=== PATIENT | female | born 1995 | race American Indian/Alaskan Native ===

== ENCOUNTER 2016-06-29 22:37 | Emergency (ER) | payer OTHER ==
[2016-06-30] MEDS ORDERED: BENADRYL ONE (01:20)
[2016-06-30 01:28] VITALS: BP 126/73
[2016-06-30] MEDS ORDERED: BENADRYL IM ONE (01:29)
--- NOTE | 2016-06-30 01:55 | Emergency Department Report ---
ED Rash HPI - HPI Chief Complaint: Skin Rash Stated Complaint: HIVES, RASH Time Seen by Provider: 06/30/16 01:21 Duration: 2 Days Location: Chest, Back, Abdomen, Upper Extremities, Lower Extremities Suspected Cause: Unknown Rash Symptoms: Yes Itching (rash), No Facial Swelling, No Tongue/Oral Swelling, No Breathing Difficulties, No Choking Sensation, No Wheezing/Dyspnea, No Peeling , No Blistering, No Fever, No Lightheaded, No Malaise, No Myalgias Severity: moderate Other History: Patient report rash and redness for 2 days. She says she has been itching and she took Benadryl yesterday but did not help. Denies painful rash. Reports itching at 5 out of 10. Denies any respiratory symptoms. Has any fever or chills. She does not know as a cause of rash. ED Review of Systems ROS: Stated complaint: HIVES, RASH Other details as noted in HPI Comment: All other systems reviewed and negative Constitutional: denies: chills, fever Eyes: denies: eye pain, eye discharge ENT: denies: ear pain, throat pain, congestion Respiratory: no symptoms reported Cardiovascular: denies: chest pain, palpitations, edema, syncope Gastrointestinal: denies: abdominal pain, nausea, vomiting, diarrhea Musculoskeletal: denies: back pain, arthralgia Skin: rash, pruritus Neurological: denies: headache, numbness, paresthesias, abnormal gait, vertigo ED Past Medical Hx - Past Medical History Previous Medical History?: No - Surgical History Past Surgical History?: No - Family History Family history: no significant - Social History Smoking Status: Never Smoker Substance Use Type: None - Medications Home Medications: Home Medications Medication Instructions Recorded Confirmed Last Taken Type Ibuprofen [Motrin] 800 mg PO Q8H #30 tablet 05/13/14 Unknown Rx methOCARBAMOL [Robaxin] 500 mg PO BID #30 tab 05/13/14 Unknown Rx traMADol [Ultram 50 MG tab] 50 mg PO Q6HR PRN #20 tablet 05/13/14 Unknown Rx Cyclobenzaprine [Flexeril] 10 mg PO TID PRN #15 tablet 12/16/15 Unknown Rx Ibuprofen [Motrin 800 MG tab] 800 mg PO Q8HR PRN #30 tablet 12/16/15 Unknown Rx Diphenhydramine HCl [Benadryl 25 mg PO TID PRN #15 tablet 06/30/16 Unknown Rx Allergy TAB] methylPREDNISolone [Medrol] 4 mg PO QAM #1 tab.ds.pk 06/30/16 Unknown Rx Rash Exam - Exam General: Vital signs noted. No distress. Alert and acting appropriately. This is a 21-year-old female well-nourished well-developed in no acute distress. HEENT: No Periorbital Edema, No Conjuctival Injection, No Chemosis, No Perioral Edema, No Tongue Edema, No Uvular Edema, No Compromised Airway, No Drooling Lungs: Yes Good Air Exchange, No Wheezes, No Ronchi, No Stridor, No Cough, No Labored Respirations, No Retractions, No Use of Accessory Muscles, No Other Abnormal Lung Sounds Heart: Yes Regular, No Murmur Skin: Yes Urticarial Rash (generalized excep for face and neck), Yes Erythema, No Maculopapular Rash, No Morbilliform rash, No Bulla(e), No Excoriations, No Weeping, No Tenderness, No Edema, No Encrustations, No Other Other: Positive: Abdomen Normal, Neurologic Normal, Musculoskeletal Normal ED Course Vital Signs 06/29/16 06/30/16 23:07 01:20 Temperature 98.7 F 98.2 F Pulse Rate 117 H 97 H Respiratory 18 18 Rate Blood Pressure 139/96 Blood Pressure 126/73 [Right] O2 Sat by Pulse 99 98 Oximetry - Reevaluation(s) Reevaluation #1: 06/30/16 01:54 Patient given Solu-Medrol 125 mg and Benadryl 50 mg IM and emergency room for hives. ED Medical Decision Making - Medical Decision Making ED course: I discussed the patient that she has hives and she will need to follow-up with her drum barker operator or integration specialist to figure she is allergic to anything in the environment. Denies using anything new and environment. Patient was given Solu-Medrol 125 mg and Benadryl 50 mg IM and emergency room which minimized rash. Discharged home with prescription for Medrol Dosepak and Benadryl. I instructed patient if rash worsens or she develops cough, wheezing and difficulty breathing or swelling to return to emergency room JESSICA otherwise follow-up with her primary care physician or at [facility]. Critical care attestation.: If time is entered above; I have spent that time in minutes in the direct care of this critically ill patient, excluding procedure time. ED Disposition Clinical Impression: Hives of unknown origin Disposition: DISCHARGED TO HOME OR SELFCARE Is pt being admited?: No Does the pt Need Aspirin: No Condition: Stable Instructions: Urticaria (ED) Additional Instructions: Please return to emergency room if he developed cough, wheezing, difficulty breathing or increasing rash. Please follow up with integration specialist that he will recommended to for allergy testing. Take medication as prescribed and to not drive while taking Benadryl because this causes drowsiness Prescriptions: Diphenhydramine HCl [Benadryl Allergy TAB] 25 mg PO TID PRN #15 tablet PRN Reason: Itching methylPREDNISolone [Medrol] 4 mg PO QAM #1 tab.ds.pk Referrals: SANTY STREETER MD [Staff Physician] - 07/02/16 [facility] [Outside] - 2-3 Days Forms: Work/School Release Form(ED)
== END 2016-06-30 02:01 | disposition home or self-care (01) ==
LOC: ED 22:37
DX: L50.9 Urticaria, unspecified (principal)
CPT/HCPCS: 96372; 99282; J1200; J2930

== ENCOUNTER 2019-03-06 09:41 | Emergency (ER) | payer OTHER ==
[2019-03-06 10:08] VITALS: BP 133/84
[2019-03-06] MEDS ORDERED: HYDROcodone/ACETAMINOPHEN 5-325 MG TAB PO ONE (10:14)
[2019-03-06] MEDS ORDERED: IBUPROFEN 800 MG TAB PO ONE (10:14)
--- NOTE | 2019-03-06 10:21 | Emergency Department Report ---
ED Fall HPI - General Chief Complaint: Fall Stated Complaint: RT KNEE PAIN Time Seen by Provider: 03/06/19 10:13 Source: patient, EMS Mode of arrival: Ambulatory - History of Present Illness Initial Comments: Saige is a 24-year-old female without significant past medical history who presents with right knee pain and left wrist pain after fall. While walking inside a building, she slipped and landed on her right knee and left wrist. She fell onto hard unruly. No head trauma. Severe right knee pain. Severe left wrist pain. She arrived perr EMS. MD Complaint: fall -: Sudden, This morning Fall From: other (while walking) When Fall Occurred: 1 hour [employer] Fall Witnessed: yes, by bystander Place Fall Occurred: work Loss of Consciousness: none Prolonged Down Time?: no Symptoms Prior to Fall: none Location: other (right knee and left breasts) Severity: severe Quality: aching Context: tripped/slipped Associated Symptoms: denies - Related Data Previous Rx's Medication Instructions Recorded Last Taken Type Ibuprofen [Motrin] 800 mg PO Q8H #30 tablet 05/13/14 Unknown Rx methOCARBAMOL [Robaxin] 500 mg PO BID #30 tab 05/13/14 Unknown Rx traMADol [Ultram 50 MG tab] 50 mg PO Q6HR PRN #20 tablet 05/13/14 Unknown Rx Cyclobenzaprine [Flexeril] 10 mg PO TID PRN #15 tablet 12/16/15 Unknown Rx Ibuprofen [Motrin 800 MG tab] 800 mg PO Q8HR PRN #30 tablet 12/16/15 Unknown Rx Diphenhydramine HCl [Benadryl 25 mg PO TID PRN #15 tablet 06/30/16 Unknown Rx Allergy TAB] methylPREDNISolone [Medrol] 4 mg PO QAM #1 tab.ds.pk 06/30/16 Unknown Rx HYDROcodone/APAP 5-325 [[place] 1 each PO Q6HR PRN #10 tablet 03/06/19 Unknown Rx 5/325] Ibuprofen [Motrin 800 MG tab] 800 mg PO TID 5 Days #15 tablet 03/06/19 Unknown Rx Allergies Allergy/AdvReac Type Severity Reaction Status Date / Time Sulfa (Sulfonamide Allergy Shortness Verified 05/13/14 06:49 Antibiotics) of Breath ED Review of Systems ROS: Stated complaint: RT KNEE PAIN Other details as noted in HPI Constitutional: denies: fever, malaise Respiratory: denies: shortness of breath Musculoskeletal: joint swelling, arthralgia. denies: back pain, myalgia Skin: denies: rash, lesions Neurological: denies: headache ED Past Medical Hx - Past Medical History Previous Medical History?: No - Surgical History Past Surgical History?: No - Social History Smoking Status: Never Smoker Substance Use Type: None - Medications Home Medications: Home Medications Medication Instructions Recorded Confirmed Last Taken Type Ibuprofen [Motrin] 800 mg PO Q8H #30 tablet 05/13/14 Unknown Rx methOCARBAMOL [Robaxin] 500 mg PO BID #30 tab 05/13/14 Unknown Rx traMADol [Ultram 50 MG tab] 50 mg PO Q6HR PRN #20 tablet 05/13/14 Unknown Rx Cyclobenzaprine [Flexeril] 10 mg PO TID PRN #15 tablet 12/16/15 Unknown Rx Ibuprofen [Motrin 800 MG tab] 800 mg PO Q8HR PRN #30 tablet 12/16/15 Unknown Rx Diphenhydramine HCl [Benadryl 25 mg PO TID PRN #15 tablet 06/30/16 Unknown Rx Allergy TAB] methylPREDNISolone [Medrol] 4 mg PO QAM #1 tab.ds.pk 06/30/16 Unknown Rx HYDROcodone/APAP 5-325 [[place] 1 each PO Q6HR PRN #10 tablet 03/06/19 Unknown Rx 5/325] Ibuprofen [Motrin 800 MG tab] 800 mg PO TID 5 Days #15 tablet 03/06/19 Unknown Rx ED Physical Exam - General Limitations: No Limitations General appearance: alert, in no apparent distress - Head Head exam: Present: atraumatic, normocephalic - Eye Eye exam: Present: normal appearance - ENT ENT exam: Present: mucous membranes moist - Neck Neck exam: Present: normal inspection, full ROM - Respiratory Respiratory exam: Absent: respiratory distress - GI/Abdominal GI/Abdominal exam: Present: soft - Extremities Exam Extremities exam: Present: other (right knee: No edema no crepitus full range of motion passive and active flexion and extension no laxity ) - Back Exam Back exam: Present: normal inspection - Neurological Exam Neurological exam: Present: alert, oriented X3 - Psychiatric Psychiatric exam: Present: normal affect, normal mood - Skin Skin exam: Present: warm, dry, intact, normal color. Absent: rash - Other Other exam information: Left wrist: No tenderness no edema no snuffbox tenderness full range of motion medial ulnar and radial nerves distally intact ED Course Vital Signs 03/06/19 03/06/19 10:00 10:06 Temperature 99 F 99.0 F Pulse Rate 101 H 98 H Respiratory 18 18 Rate Blood Pressure 133/84 O2 Sat by Pulse 100 98 Oximetry ED Medical Decision Making - Radiology Data Radiology results: report reviewed Right knee, left wrist radiographs no acute findings according to radiology impression - Medical Decision Making Fall: Right knee contusion, right knee sprain: Left wrist sprain, Right knee immobilizer was applied to the affected extremity under my supervision. After application the extremity was neurovascularly intact with acceptable alignment. Crutches provided to patient. Referred to orthopedic surgeon. Recommended limited weightbearing with knee immobilizer until evaluated by orthopedic surgeon or until completely pain-free. Critical care attestation.: If time is entered above; I have spent that time in minutes in the direct care of this critically ill patient, excluding procedure time. ED Disposition Clinical Impression: Contusion of right knee, Right knee sprain, Left wrist sprain Disposition: - TO HOME OR SELFCARE Is pt being admited?: No Does the pt Need Aspirin: No Condition: Stable Instructions: Knee Sprain (ED), Wrist Sprain (ED) Prescriptions: Ibuprofen [Motrin 800 MG tab] 800 mg PO TID 5 Days #15 tablet HYDROcodone/APAP 5-325 [[place] 5/325] 1 each PO Q6HR PRN #10 tablet PRN Reason: Pain Referrals: HCEN CASTRO MD [Staff Physician] - 3-5 Days Forms: Work/School Release Form(ED)
--- NOTE | 2019-03-06 10:46 | XRay Report ---
RIGHT KNEE, 3 VIEWS INDICATION: fall. COMPARISON: None. IMPRESSION: No acute osseous or soft tissue abnormality. No significant DJD. Signer Name: Best Cassidy Jr, MD Signed: 03/06/2019 10:42 AM Workstation Name: [id number]
--- NOTE | 2019-03-06 10:51 | XRay Report ---
LEFT WRIST HISTORY: fall COMPARISON: None. TECHNIQUE: 3 views of the left wrist obtained. FINDINGS: Bones: No fracture or dislocation. 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 The rest of the joints are normal. Soft tissues: No significant abnormality. Additional findings: None. IMPRESSION: 1. No apparent traumatic injury. 2. 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 Signer Name: Adrian Garcia MD Signed: 03/06/2019 10:47 AM Workstation Name: [id number]
== END 2019-03-06 11:50 | disposition home or self-care (01) ==
LOC: ED 09:41
DX: S83.91XA Sprain of unspecified site of right knee, initial encounter (principal); S63.502A Unspecified sprain of left wrist, initial encounter; Z88.2 Allergy status to sulfonamides; Z79.899 Other long term (current) drug therapy; W01.0XXA Fall on same level from slipping, tripping and stumbling without subsequent striking against object, initial encounter; Y93.01 Activity, walking, marching and hiking; Y92.89 Other specified places as the place of occurrence of the external cause; Y99.8 Other external cause status